=== PATIENT | female | born 1990 | race Caucasian/White ===

== ENCOUNTER 2024-07-16 09:34 | Outpatient (CLI) | payer OTHER | END 2024-07-16 09:35 | disposition home or self-care (01) | LOC: CSHULT 09:34 | PROVIDERS: ATTEND Family Medicine | DX: O09.523 Supervision of elderly multigravida, third trimester (principal); O41.03X0 Oligohydramnios, third trimester, not applicable or unspecified; Z3A.31 31 weeks gestation of pregnancy | CPT/HCPCS: 76805 ==